=== PATIENT | male | born 1990 | race Caucasian/White ===

== ENCOUNTER 2017-07-24 08:31 | Emergency (ER) | payer SELFPAY ==
[2017-07-24 08:32] VITALS: BP 148/108; PULSE 100; RESP 17; TEMP 37.1; O2SAT 97; BMI 38.1
--- NOTE | 2017-07-24 08:45 | RAD_ITS ---
STUDY: X-RAY CHEST REASON FOR EXAM: Male, 26 years old. Anterior chest pain. Flu like symptoms. TECHNIQUE: PA and lateral views of the chest. COMPARISON: None. FINDINGS: EKG electrodes are seen. The lungs are clear and expanded. There is no demonstrated pleural abnormality. Normal size heart. Normal mediastinum and arnold. Normal visualized pulmonary arteries. Normal visualized aortic arch and descending thoracic aorta. Normal visualized thoracic spine. Normal visualized ribs, clavicles, and shoulders. There is no demonstrated abnormality of the visualized soft tissue structures of the upper abdomen. RAD/Chest PA and Lateral IMPRESSION: Normal x-ray examination of the chest. Electronically Signed: Kristian Hyatt MD at 9:12 EDT Tel [phone], Service support ,
--- NOTE | 2017-07-24 08:46 | ED.VISSUMM ---
- ER Visit Summary Date of Service: 07/24/17 Chief Complaint: Flu symptoms and vomiting History of Present Illness: The patient is a 26 M with no underlying medical conditions who presents for 2 days of flulike symptoms and vomiting. Patient's girlfriend was diagnosed with influenza B yesterday. Patient states he has been having similar symptoms for 2 days, except he is having vomiting as well. He is also concerned about episodes of chest heaviness and shortness of breath that occur if he coughs or moves incorrectly. The symptoms will last approximately 1 hour and then resolved. He has been using Advil and TheraFlu. Associated fever, cough, vomiting, myalgias and headache. No rash, weakness, paresthesias or visual changes. It is a smoker. Physical Examination: Vital signs: afebrile, hemodynamically stable, no hypoxia on room air General: well nourished, well developed, in no distress Skin: warm, dry, moist, no rash, no pallor HEENT: normocephalic and atraumatic; PERRL, EOMI, moist mucous membranes Cardiovascular: regular rate and rhythm without murmurs, no peripheral edema, 2+ pulses all distal extremities Respiratory: No increased work of breathing, lungs show mild diffuse coarseness, left > right, to auscultation bilaterally, no rales or wheezing Abdominal: Abdomen is soft, nontender with normoactive bowel sounds, no guarding or rebound, no masses MSK: Moves all extremities, no deformities, normal strength Neuro: Awake and alert, oriented ?4. No facial droop, sensation and motor function intact and symmetric Test Results: Clinical Impression(s) from Imaging Studies Chest X-Ray 07/24/17 08:45 IMPRESSION: Normal x-ray examination of the chest. Electronically Signed: Kristian Hyatt MD at 9:12 EDT Tel [phone], Service support , Emergency Department Course and Treatment: Patient is concerned about developing pneumonia, given the chest tightness and shortness of breath triggered by movement or coughing episodes. Flu test not performed, as diagnosis can be made clinically given known exposure and consistent symptoms with flu B. X-ray was performed due to patient's concern for pneumonia. It showed no infiltrates or effusions. Patient had episodic chest wall spasms for which he was given Toradol. EKG showed no diffuse [place] depressions or ST elevations that would be concerning for pericarditis. Patient is well-appearing, afebrile and non-tachycardic, and symptoms are not consistent with viral myocarditis. Patient will continue using olal-vzd-dnooscg pain medications as needed for pain. He was given a prescription for Zofran for any further nausea. 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 Treatment Plan: [] Disposition: [] Impression: Influenza B This note was generated with [employer] dictation software. It may contain incorrect words, spelling, and punctuation that were not noted in review of the chart prior to signing ED Disposition - Plan for ED Patient: Disposition: Home or Assisted Living Chief Complaint: Cold Sx Instructions: ED Flu Prescriptions: Ondansetron [Zofran Odt] 4 mg PO TID PRN #10 tab.rapdis PRN Reason: Nausea Referrals: Care Physician,No Primary [Primary Care Provider] - Doctor,Your [STAFF PHYSICIAN] - 1 Week if not improving Additional Instructions: Continue over the counter medications for symptom control, as you have been doing. Do not return to work until you are feeling better, since you could spread the flu to others. If you have any worsening of your condition or any new concerning symptoms, please return immediately to the emergency department for another evaluation.
--- NOTE | 2017-07-24 08:49 | ED.DCSUM_ITS ---
- ER Visit Summary Date of Service: 07/24/17 Chief Complaint: Flu symptoms and vomiting History of Present Illness: The patient is a 26 M with no underlying medical conditions who presents for 2 days of flulike symptoms and vomiting. Patient's girlfriend was diagnosed with influenza B yesterday. Patient states he has been having similar symptoms for 2 days, except he is having vomiting as well. He is also concerned about episodes of chest heaviness and shortness of breath that occur if he coughs or moves incorrectly. The symptoms will last approximately 1 hour and then resolved. He has been using Advil and TheraFlu. Associated fever, cough, vomiting, myalgias and headache. No rash, weakness, paresthesias or visual changes. It is a smoker. Physical Examination: Vital signs: afebrile, hemodynamically stable, no hypoxia on room air General: well nourished, well developed, in no distress Skin: warm, dry, moist, no rash, no pallor HEENT: normocephalic and atraumatic; PERRL, EOMI, moist mucous membranes Cardiovascular: regular rate and rhythm without murmurs, no peripheral edema, 2 + pulses all distal extremities Respiratory: No increased work of breathing, lungs show mild diffuse coarseness , left > right, to auscultation bilaterally, no rales or wheezing Abdominal: Abdomen is soft, nontender with normoactive bowel sounds, no guarding or rebound, no masses MSK: Moves all extremities, no deformities, normal strength Neuro: Awake and alert, oriented ?4. No facial droop, sensation and motor function intact and symmetric Test Results: Clinical Impression(s) from Imaging Studies Chest X-Ray 07/24/17 08:45 IMPRESSION: Normal x-ray examination of the chest. Electronically Signed: Kristian Hyatt MD at 9:12 EDT Tel [phone], Service support , Emergency Department Course and Treatment: Patient is concerned about developing pneumonia, given the chest tightness and shortness of breath triggered by movement or coughing episodes. Flu test not performed, as diagnosis can be made clinically given known exposure and consistent symptoms with flu B. X-ray was performed due to patient's concern for pneumonia. It showed no infiltrates or effusions. Patient had episodic chest wall spasms for which he was given Toradol. EKG showed no diffuse [place] depressions or ST elevations that would be concerning for pericarditis. Patient is well-appearing , afebrile and non-tachycardic, and symptoms are not consistent with viral myocarditis. Patient will continue using kwyk-vqy-ozvjski pain medications as needed for pain. He was given a prescription for Zofran for any further nausea. 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 Treatment Plan: [] Disposition: [] Impression: Influenza B This note was generated with [employer] dictation software. It may contain incorrect words, spelling, and punctuation that were not noted in review of the chart prior to signing ED Disposition - Plan for ED Patient: Disposition: Home or Assisted Living Chief Complaint: Cold Sx Instructions: ED Flu Prescriptions: Ondansetron [Zofran Odt] 4 mg PO TID PRN #10 tab.rapdis PRN Reason: Nausea Referrals: Care Physician,No Primary [Primary Care Provider] - Doctor,Your [STAFF PHYSICIAN] - 1 Week if not improving Additional Instructions: Continue over the counter medications for symptom control, as you have been doing. Do not return to work until you are feeling better, since you could spread the flu to others. If you have any worsening of your condition or any new concerning symptoms, please return immediately to the emergency department for another evaluation.
[2017-07-24] MEDS: Ondansetron ODT 4 MG Tablet PO (09:44)
--- OUTSIDE RECORDS SUMMARY | 2017-07-24 09:48 | XMS RPT_ITS ---
:1990 Author Organization [facility] Care Team Providers Name Role Phone Noel Husain Attending Unavailable Primay Care Physicia, No Primary Care Unavailable Primay Care Physicia, No Primary Care Unavailable Monie Newman Attending Unavailable PROBLEMS PROBLEMS DATE TYPE CONDITION / ATTENDING STATUS SOURCE CODE 08/05/2016 Admitting ABSCESS, Noel Husain Active [place] diagnosis FURUNCLE AND [facility] CARBUNCLE [facility] NOSE / Repository J34.0(ICD-10) 08/05/2016 Admitting TOBACCO USE / Noel Husain Active [place] diagnosis Z72.0(ICD-10) [facility] Repository PROCEDURES PROCEDURES No Procedure Records FoundRESULTS RESULTS CHEST PA AND LATERAL Observed: 07/24/2017 Status: F Source: KIMBERLY 8:46 AM [facility] [id number] [place] [id number] PA and LateralMR#: [id number] Acct: [id number]: AMINA HERNANDEZ Rep #: [id number]: [birth year] M 26 From: Kristian Hyatt MDPCP: Care Physician, No Primary Status: REG ERStudy: Chest PA and Lateral Date of Exam: 07/24/17Exam# [id number] Ordering Dr: Monie Newman MDSTUDY: X-RAY CHESTREASON FOR EXAM: Male, 26 years old. Anterior chest pain. Flu likesymptoms.TECHNIQUE: PA and lateral views of the chest.COMPARISON: None. FINDINGS:EKG electrodes are seen.The lungs are clear and expanded. There is no demonstrated pleuralabnormality.Normal size heart. Normal mediastinum and arnold. Normal visualizedpulmonary arteries. Normal visualized aortic arch and descending thoracicaorta.Normal visualized thoracic spine. Normal visualized ribs, clavicles, andshoulders.There is no demonstrated abnormality of the visualized soft tissuestructures of the upper abdomen. ORDER #: [id number] RAD/Chest PA and LateralIMPRESSION:Normal x-ray examination of the chest.Electronically Signed:Kristian Hyatt MD at 9:12 EDTT [phone], Service support , LQ: No Primary Care Physician; Monie Newman MD [employer] Administrator:Signed EMERGENCY DEPARTMENT Observed: 07/31/2016 Status: F Source: POSEN SUMMARY 7:36 AM [facility] [id number] [place], [place] [address]Oiuseqcct Department SummaryMR#: [id number] Acct: [id number]: AMINA HERNANDEZ Rep #: [id number]: 1990 25 From: Noel MARINELLICP: Care Physician,No Primary Status: DEP ERDATE OF SERVICE: 07/30/2016CHIEF COMPLAINT:Redness at the tip of his nose.HISTORY OF PRESENT ILLNESS:This is a 25-year-old male, redness at the tip of his nose for the last 2-3 days. Nofever. Denies any trauma. He said he tried to express pus from it tonight and did notget anything out of it.PHYSICAL EXAMINATION:GENERAL: A 25-year-old gentleman.VITAL SIGNS: Stable, afebrile. She does not look septic or toxic, no acute distress.HEENT: Normal except tip of his nose is red, mildly tender. There is no abscess to bedrained at this time. Inside his nose, there are no pustules or drainage. Posteriorpharynx unremarkable.NECK: Nontender. No lymphadenopathy.LUNGS: Clear.HEART: Regular rate and rhythm. No murmur.ABDOMEN: Soft, nontender.EXTREMITIES: Moves all 4.NEUROLOGIC: Unremarkable.IMPRESSION: Facial cellulitis in the tip of the nose.PLAN:Keflex and Bactrim, given a dose here of each, each will be treated for 10 days. He hasno primary care physician. He was referred to Dr. Atul Gan from the no doc list. Warmcompresses to the area and Motrin and Tylenol for pain.SNOW [place] C: Atul Gan MDT: NTSJOB: [id number]/ [id number] <Electronically signed by Noel Husain MD>Date [facility] Signature (If Indicated): Date CC: Atul Gan MD; No Primary Care Physician Date Dictated: 07/30/162225Date Transcribed: 07/30/162225Transcriptionist:Signed DISCHARGE INSTRUCTION Observed: 07/31/2016 Status: F Source: POSEN 12:20 AM [facility] [id number] [facility] [place], [place] [address]Vptfkkgyq Nsnotnfgxmv97/15/17 222MR#: [id number] Acct: [id number]: AMINA HERNANDEZ Rep #: [id number]: 1990 25 From: Noel Husain MDPCP: Care Physician,No Primary Status: DEP ERED Disposition- Plan for ED Patient:Disposition: Home or Assisted LivingChief Complaint: WoundInstructions: ED Cellulitis FacialPrescriptions:Smz/Tmp Ds [Bactrim Ds] 1 tablet PO BID #20 tabletCephalexin [Keflex] 500 mg PO 4X/DAY 10 DaysReferrals:Atul Gan MD [NON-STAFF] - 3-5 Days if not improvingAdditional Instructions:WARM COMPRESSES TO NOSEMOTRIN AND TYLENOL FOR PAINRETURN IF WORSEWhat to do if you have ProblemsFor any increased pain, shortness of breath, bleeding, nausea or vomiting, chest pain, or anyunexpected problems, contact your Primary Care Provider. Call [facility] ([phone])or report to the closest Emergency Room.Call 911 if necessary.07/31/16 0020 <Electronically signed by Noel Husain MD>Date Noel Husain MDCosigner Signature (If Indicated): Date ___CC: No Primary Care Physician ALLERGIES ALLERGIES DATE TYPE / CODE NAME / CODE REACTION SEVERITY SOURCE 12/18/2015 Drug No Known Unknown [facility] Allergy/416 Allergies/T97522 [facility] 807362(SNOM 0388(RXNORM) Repository ED CT) 12/18/2015 Allergy/420 No Known [facility] [id number]([facility] Allergies Hospital ED CT) Repository ENCOUNTERS ENCOUNTERS ADMIT/DISCHARGE ACCOUNT ADMITTING ENCOUNTER LOCATION SOURCE NUMBER CLASS 07/24/[id number] [facility] ing:ED Repository 07/30/2016/ [id number] Emergency [address] ing:ED Repository PAYERS PAYERS ENCOUNTER GUARANTOR PAYER SUBSCRIBER SOURCE 07/24/2017 AMINA Mancia [id number] Primary MICHAEL PRETTY Insurance:SELF PAY [facility] [id number]: (330) Number: Effective Repository [phone] () Date:2017-07-24 07/30/2016 AMINA Mancia [id number] Primary AMINA PRETTY Insurance:SELF PAY [facility] [id number]: Number: Effective [facility] Date: (HP)
--- NOTE | 2017-07-24 09:53 | ED.DEP ---
ED Disposition - Plan for ED Patient: Disposition: Home or Assisted Living Chief Complaint: Cold Sx Instructions: ED Flu Prescriptions: Ondansetron [Zofran Odt] 4 mg PO TID PRN #10 tab.rapdis PRN Reason: Nausea Referrals: Care Physician,No Primary [Primary Care Provider] - Doctor,Your [STAFF PHYSICIAN] - 1 Week if not improving Additional Instructions: Continue over the counter medications for symptom control, as you have been doing. Do not return to work until you are feeling better, since you could spread the flu to others. If you have any worsening of your condition or any new concerning symptoms, please return immediately to the emergency department for another evaluation.
--- NOTE | 2017-07-24 10:08 | EKG12_ITS ---
Test Reason : FLU
[2017-07-24] MEDS: Ketorolac 60 MG/2 ML Vial IM (10:32)
== END 2017-07-24 10:40 | disposition home or self-care (01) ==
PROVIDERS: Emergency Provider Emergency Medicine
DX: J11.1 Influenza due to unidentified influenza virus with other respiratory manifestations (principal); F17.200 Nicotine dependence, unspecified, uncomplicated
CPT/HCPCS: 71046; 93005; 96372; 99282

== ENCOUNTER 2017-10-30 19:47 | Emergency (ER) | payer SELFPAY ==
[2017-10-30 19:48] VITALS: BP 121/91; PULSE 101; RESP 24; TEMP 37.6; O2SAT 100; BMI 38.7
--- NOTE | 2017-10-30 20:03 | EKG12_ITS ---
Test Reason : SOB Blood Pressure : / mmHG Vent. Rate : 088 BPM Atrial Rate : 088 BPM P-R Int : 192 ms QRS Dur : 116 ms QT Int : 360 ms P-R-T Axes : 049 022 028 degrees QTc Int : 435 ms Normal sinus rhythm Normal ECG Confirmed by AFSHIN CLAY, MARY KAY ([id number]), photographic editor CARLOS MAHONEY ([id number]) on 11/01/2017 1:43:26 PM Referred By: DANIEL Confirmed By:MARY KAY PEPE MD
--- NOTE | 2017-10-30 20:20 | RAD_ITS ---
STUDY: X-RAY CHEST REASON FOR EXAM: Male, 27 years old. Short of breath TECHNIQUE: PA and lateral COMPARISON: July 24, 2017 FINDINGS: The lungs are clear and expanded. There is no demonstrated pleural abnormality. Normal size heart. Normal mediastinum and arnold. Normal visualized pulmonary arteries. Normal visualized aortic arch and descending thoracic aorta. Normal visualized thoracic spine. Normal visualized ribs, clavicles, and shoulders. There is no demonstrated abnormality of the visualized soft tissue structures of the upper abdomen. No significant changes since prior study RAD/Chest PA and Lateral IMPRESSION: Normal x-ray examination of the chest. Electronically Signed: Noel Quiroz MD at 21:06 EDT , Service support ,
[2017-10-30 20:24] VITALS: PULSE 87; RESP 20
[2017-10-30] MEDS: Ipratropium/Albuterol Sulfate 3 ML AMPUL.NEB INHALATION (20:24)
[2017-10-30] MEDS: 0.9% Normal Saline 1,000 ML 999 ML IV (20:26)
[2017-10-30 20:33] LABS: Absolute Lymphocyte Count 1.25 X10^3/ul (0.83-4.51); Absolute Neutrophil Count 7.1 X10^3/uL (2.0-7.7); Basophil# 0.02 X10^3/uL; Basophil% 0.2 % (0-1); Eosinophil# 0.17 X10^3/uL; Eosinophils% 1.8 % (0-5); Hematocrit 44.5 % (40-54); Hemoglobin 15.2 g/dl (13.0-16.5); Lymphocyte # 1.25 X10^3/ul (4.0); Mean Corp Hgb Conc 34.2 g/gl (32-36); Mean Corpuscular Hgb 29.7 pg (27.0-32.0); Mean Corpuscular Volume 86.9 fL (80-94); Mean Platelet Vol. 9.5 fl (6.2-12.0); Monocyte# 1.11 X10^3/uL; Monocyte% 11.5 % (0-10); Neutrophil # 7.08 X10^3/uL (2.7-7.7); Neutrophil % 73.4 % (47-70); Platelet Count 213 K/mm3 (150-450); RBC Distribution Width CV 12.6 % (11.6-14.6); RBC Distribution Width SD 40.3 fl (35.1-43.9); Red Blood Count 5.12 M/mm3 (4.6-6.2); White Blood Count 9.6 K/mm3 (4.4-11.0)
[2017-10-30 20:34] LABS: POSITIVE COUNT NO; POSITIVE DIFFERENTIAL NO; POSITIVE MORPHOLOGY NO
[2017-10-30 20:45] LABS: Anion Gap 8 (5-15); BUN 11 mg/dL (7-18); BUN/Creat Ratio 9.6 RATIO (10-20); Calcium,Total 8.8 mg/dL (8.5-10.1); Chloride 104 mmol/L (98-107); Creatinine, Serum 1.14 mg/dL (0.70-1.30); EST Glomerular Filtration Rate 82 mL/min (>60); Est Glom Filt Rate - Afr Amer 99 mL/min (>60); Estimated Creatinine Clearance 116.33 ml/min; Glucose 84 mg/dL (74-106); Potassium 3.2 mmol/L (3.5-5.1); Sodium Level 139 mmol/L (136-145)
[2017-10-30 20:50] LABS: Allen Test POS; Base Excess -1 mmol/L (-2 to +2); Bicarbonate 21.1 mmol/L (22-26); Blood Gas Specimen Type ART; O2 Delivery Device Room Air; PO2 79 mmHG (75-100); SITE L Radial; SO2 97 % (95-99); Time Given 2020; Total Carbon Dioxide 22 mmol/L; pCO2 23.8 mmHg (35-45); pH 7.56 (7.35-7.45)
--- NOTE | 2017-10-30 22:40 | ED.DCSUM_ITS ---
- ER Visit Summary Date of Service: 10/30/17 Chief Complaint: Shortness of breath History of Present Illness: The patient is a 27 M who presents with shortness of breath that became worse today. Patient states he has been having a cough with some dark yellow sputum. Patient admits to subjective fevers at home. Patient denies any chest pain. Patient states his girlfriend was recently diagnosed with bronchitis. Patient states he feels like he has stuff in his right lower lung that he needs to cough up. Patient states he is unable to do that. Physical Examination: Vital signs are stable. Patient is afebrile. Patient is hyperventilating on evaluation. Oral mucosa is pink and moist. Neck is supple. There is no JVD noted. Heart was regular rate and rhythm. Lungs showed scattered rhonchi. There is good respiratory effort noted. Abdomen is soft. Bowel sounds are normal. Cranial nerves II through XII are intact. There are no focal motor or sensory deficits noted. Patient is having some carpal pedal spasms due to his hyperventilation. The remaining physical exam is within normal limits. Test Results: Chest x-ray was obtained and was normal. EKG showed normal sinus rhythm with a rate of 88. There are no acute ST or T-wave changes. This was unchanged compared to previous EKG dated 07/24/2017. CBC was normal. Basic metabolic profile showed a mild hypokalemia at 3.2. Arterial blood gas showed a pH of 7.56 with a PCO2 of 23.8. PO2 was 79. Bicarb was 21.1. Oxygen saturation 97% on room air. Emergency Department Course and Treatment: Patient was given a DuoNeb aerosol here. Patient felt better on reevaluation. Patient is no longer hyperventilating. Patient was instructed to follow-up with his primary care physician in 5-7 days. Patient understood and was agreeable with the plan. All questions were answered. Disposition: Discharge home Impression: Dyspnea This note was generated with [employer] dictation software. It may contain incorrect words, spelling, and punctuation that were not noted in review of the chart prior to signing ED Disposition - Plan for ED Patient: Disposition: Home or Assisted Living Chief Complaint: Shortness of Breath Diagnosis: Dyspnea Instructions: ED Dyspnea Shortness of Breath Referrals: Care Physician,No Primary [Primary Care Provider] -
[2017-10-30 23:13] VITALS: BP 114/90; PULSE 92; RESP 20; O2SAT 100
--- NOTE | 2017-10-31 13:43 | CM.ED ---
ED CALLBACK: Follow-up call placed to patient with no answer. Voicemail box has not been setup yet, per message. Will reattempt as time allows.
== END 2017-10-30 23:14 | disposition home or self-care (01) ==
PROVIDERS: Emergency Provider Emergency Medicine
DX: R06.00 Dyspnea, unspecified (principal); E66.9 Obesity, unspecified
CPT/HCPCS: 36600; 71046; 80048; 82803; 85025; 93005; 94640; 96360; 96361; 99284; J7030; A4216

== ENCOUNTER 2019-05-23 21:44 | Emergency (ER) | payer SELFPAY ==
[2019-05-23 21:45] VITALS: BP 130/76; PULSE 105; RESP 18; TEMP 36.4; O2SAT 96; BMI 36.8
--- NOTE | 2019-05-23 22:20 | ED.DCSUM_ITS ---
- ER Visit Summary Date of Service: 05/23/19 Chief Complaint: Nausea, vomiting and diarrhea History of Present Illness: The patient is a 28 M no past medical or surgical history. Patient states for last 3 to 4 days he has had nausea and mild vomiting. That she started today. He is also had diarrhea. No melena. No fever no abdominal pain. No dysuria. Physical Examination: Young male no acute distress vital signs stable afebrile. Does not look septic or toxic. Does not look dehydrated. H EENT exam unremarkable. Hospitalist members. Neck nontender no lymphadenopathy. Lungs clear to auscultation bilaterally. Heart regular rhythm rate about 100 no murmur. Abdomen soft nontender normal bowel sounds no peritoneal signs. No localizing tenderness. Both the right upper and right lower quadrants are nontender. No hernias or masses. Nondistended. No obstruction. Patient moving all 4 extremities. Back nontender. Skin no rashes. Neurologically is awake alert with no focal motor deficits. Test Results: None Emergency Department Course and Treatment: P.o. Zofran. P.o. fluid challenge if does well discharged home. Treatment Plan: Zofran as needed for nausea. Fluids and rest. Increase diet slowly as tolerated. Disposition: Discharge Impression: Acute viral gastroenteritis This note was generated with [employer] dictation software. It may contain incorrect words, spelling, and punctuation that were not noted in review of the chart prior to signing ED Disposition - Plan for ED Patient: Referrals: Care Physician,No Primary [Primary Care Provider] -
--- NOTE | 2019-05-23 22:22 | ED.DEP ---
ED Disposition - Plan for ED Patient: Disposition: Home or Assisted Living Instructions: GASTROENTERITIS, Viral (6y-Adult) Prescriptions: Ondansetron [Zofran Odt] 4 mg PO Q8H PRN PRN #7 tab PRN Reason: Nausea Prescription Printed Referrals: Janene Thomas [NON-STAFF] - 3-5 Days if not improving Additional Instructions: Plenty of fluids and rest. Increase diet as tolerated. Zofran as needed for nausea. Follow-up if not improving.
[2019-05-23] MEDS: Ondansetron ODT 4 MG Tablet 8 MG PO (22:23)
== END 2019-05-23 22:36 | disposition home or self-care (01) ==
LOC: ED 22:29
PROVIDERS: Emergency Provider Emergency Medicine
DX: A08.4 Viral intestinal infection, unspecified (principal); Z72.0 Tobacco use
CPT/HCPCS: 99283

== ENCOUNTER 2019-10-10 14:28 | Emergency (ER) | payer SELFPAY ==
[2019-10-10 14:29] VITALS: BP 151/103; PULSE 95; RESP 17; TEMP 36.6; O2SAT 96; BMI 40.6
--- NOTE | 2019-10-10 14:58 | CT_ITS ---
STUDY: CT ABDOMEN AND PELVIS WITHOUT CONTRAST REASON FOR EXAM: Male, 29 years old. PAINLESS VOMITING RADIATION DOSAGE (If Supplied By Facility): CTDIvol = ( 22.9 ) mGy, DLP = ( 1834.97 ) mGycm TECHNIQUE: Transaxial images were obtained from the dome of the diaphragm to the symphysis pubis without oral contrast, and without intravenous contrast. Sagittal and coronal images were reconstructed. Individualized dose optimization techniques were used for this CT. COMPARISON: None. FINDINGS: The visualized lung bases are unremarkable. The visualized portions of the heart are within normal limits. There is decreased attenuation of the liver consistent with steatosis. Normal gallbladder and extrahepatic biliary system. Normal spleen. Normal pancreas. Normal bilateral adrenal glands. Normal right kidney. Normal left kidney. No definite renal or ureteral stones are seen. There is no hydronephrosis on either side. Evaluation of the GI tract is limited by absence of oral contrast. Cannot exclude stomach wall thickening. No dilated loops of bowel or evidence for obstruction. Cannot exclude segmental thickening of the jara of the small or large bowel. Cannot exclude enteritis or colitis. Moderate diffuse fecal retention. Appendix within normal limits. Normal abdominal aorta. Normal inferior vena cava. Normal retroperitoneum. Normal urinary bladder. Normal abdominal wall. Normal osseous structures. CT/Abdomen/Pelvis without Cont IMPRESSION: No definite acute or significant abnormality seen. Electronically Signed: Cristian June MD at 17:55 EDT , Service support ,
--- NOTE | 2019-10-10 14:59 | ED.VISSUMM ---
- ER Visit Summary Date of Service: 10/10/19 Chief Complaint: Nausea and vomiting History of Present Illness: The patient is a 29 M who presents with nausea and vomiting that has been constant for the past week. Patient states it is worse in the morning. Patient states he did noted some blood streaks in his emesis yesterday but denies any other hematemesis or coffee-ground emesis. Patient denies any abdominal pain. Patient denies any diarrhea, melena, or hematochezia. Patient denies any dysuria or hematuria. Patient admits to subjective chills and a mild sore throat. Patient also admits to a mild cough. Physical Examination: Vital signs are stable. Patient is afebrile. Patient is in no acute distress. Oral mucosa is pink and moist. Neck is supple. Trachea is midline. There is no JVD. Heart was regular rate and rhythm. Lungs are clear and equal bilaterally. Abdomen is soft. Bowel sounds are normal. There is no tenderness. There is no guarding noted. Cranial nerves II through XII are intact. There are no focal motor or sensory deficits. Test Results: CBC and comprehensive metabolic profile were essentially within normal limits. Lipase was normal. Urinalysis does not show any evidence of urinary tract infection. CT scan of the abdomen pelvis was obtained. There is no acute intra-abdominal process. This was interpreted by the radiologist and reviewed by myself. Emergency Department Course and Treatment: Patient was given IV fluids and Zofran. Patient was feeling better on reevaluation. Patient was instructed to follow-up with his primary care physician in 5 to 7 days. Patient was instructed return if worse in any way. Patient understood and was agreeable with the plan. All questions were answered. Disposition: Discharge home Impression: Nausea and vomiting This note was generated with PositiveID dictation software. It may contain incorrect words, spelling, and punctuation that were not noted in review of the chart prior to signing ED Disposition - Plan for ED Patient: Disposition: Home or Assisted Living Diagnosis: Nausea & vomiting Instructions: ED Nausea Vomiting Adult Referrals: Art Bui MD [NON-STAFF] - 5-7 Days
[2019-10-10 15:30] LABS: Absolute Lymphocyte Count 1.65 X10^3/uL (0.83-4.51); Absolute Neutrophil Count 5.2 X10^3/uL (2.0-7.7); Basophil# 0.04 X10^3/uL; Basophil% 0.5 % (0-1); Eosinophil# 0.04 X10^3/uL; Eosinophils% 0.5 % (0-5); Hematocrit 45.9 % (40-54); Hemoglobin 15.8 g/dL (13.0-16.5); Lymphocyte # 1.65 X10^3/ul (4.0); Lymphocyte % 21.9 % (19-41); Mean Corp Hgb Conc 34.4 g/dL (32-36); Mean Corpuscular Hgb 30.2 pg (27.0-32.0); Mean Corpuscular Volume 87.6 fL (80-94); Mean Platelet Vol. 9.1 fl (6.2-12.0); Monocyte# 0.56 X10^3/uL; Monocyte% 7.4 % (0-10); NRBC Flagged by Analyzer 0 % (0-5); Neutrophil # 5.21 X10^3/uL (2.7-7.7); Neutrophil % 69.3 % (47-70); Platelet Count 276 K/mm3 (150-450); RBC Distribution Width CV 12.4 % (11.6-14.6); RBC Distribution Width SD 39.8 fl (35.1-43.9); Red Blood Count 5.24 M/mm3 (4.6-6.2); White Blood Count 7.5 K/mm3 (4.4-11.0)
[2019-10-10] MEDS: 0.9% Normal Saline 1,000 ML 1000 ML IV (15:37)
[2019-10-10 15:48] LABS: ALB/GLOB Ratio 1.2 RATIO (0.9-2.4); AST(SGOT) 53 U/L (15-37); Alanine Aminotransfer ALT/SGPT 128 U/L (16-61); Albumin, Serum 4.4 g/dL (3.2-5.0); Alkaline Phosphatase 76 U/L (45-117); Anion Gap 4 (5-15); BUN 14 mg/dL (7-18); BUN/Creat Ratio 15.7 RATIO (10-20); Calcium,Total 8.9 mg/dL (8.5-10.1); Chloride 108 mmol/L (98-107); Creatinine, Serum 0.89 mg/dL (0.70-1.30); EST Glomerular Filtration Rate 107 mL/min (>60); Est Glom Filt Rate - Afr Amer 130 mL/min (>60); Estimated Creatinine Clearance 146.37 ml/min; Globulin 3.7 g/dL (2.2-4.2); Glucose 106 mg/dL (74-106); Lipase 46 U/L (73-393); Potassium 3.7 mmol/L (3.5-5.1); Protein, Total 8.1 g/dL (6.4-8.2); Sodium Level 138 mmol/L (136-145)
[2019-10-10 16:39] VITALS: RESP 17
[2019-10-10 17:13] LABS: Bacteria 0 SEEN /hpf (None Seen); Red Blood Cells-Urine 0 SEEN /hpf (0-5); White Blood Cells 0 SEEN /hpf (0-5)
[2019-10-10 17:19] LABS: Glucose, Dipstick Normal (Normal); Ketone-Dipstick 5 mg/dl (Negative); Leukocyte Esterase-Dipstick Negative /ul (Negative); Nitrite-Dipstick Negative (Negative); Occult Blood-Urine Negative /ul (Negative); Protein-Dipstick 15 mg/dl (Negative); Specific Gravity, Urine 1.015 (1.002-1.030); Urine Bilirubin Dipstick Negative (Negative); Urine Urobilinogen Normal (Normal)
[2019-10-10 17:22] LABS: Color, Urine Yellow (Yellow); Urine Clarity Sl Cldy (Clear)
[2019-10-10 17:25] LABS: Mucous, Urine RARE /hpf (<or=2+); Squamous Epithelial Cells - UA 0-5 SEEN /hpf (0-5)
[2019-10-10 19:08] VITALS: RESP 16
== END 2019-10-10 19:09 | disposition home or self-care (01) ==
PROVIDERS: Emergency Provider Emergency Medicine
DX: R11.2 Nausea with vomiting, unspecified (principal); E66.9 Obesity, unspecified; F17.210 Nicotine dependence, cigarettes, uncomplicated
CPT/HCPCS: 74176; 80053; 81001; 83690; 85025; 96360; 99283; J7030; A4216; J2405

== ENCOUNTER 2019-12-01 09:13 | Emergency (ER) | payer SELFPAY ==
[2019-12-01 09:13] VITALS: BP 158/142; PULSE 76; RESP 18; TEMP 36.6; O2SAT 99; BMI 41.3
--- NOTE | 2019-12-01 09:50 | EKG12_ITS ---
Test Reason : Blood Pressure : / mmHG Vent. Rate : 068 BPM Atrial Rate : 068 BPM P-R Int : 188 ms QRS Dur : 116 ms QT Int : 394 ms P-R-T Axes : 029 007 023 degrees QTc Int : 418 ms Normal sinus rhythm with sinus arrhythmia Normal ECG Confirmed by ILA CLAY, MARC ([id number]), editorial manager OLIVERIO SKELTON ([id number]) on 12/07/2019 1:13:18 PM Referred By: SHAHAB Confirmed By:MARIA C THORPE MD
--- NOTE | 2019-12-01 09:51 | ED.VIS.GEN ---
History of Present Illness Chief Complaint: Headache Informant: Patient Onset: Weeks - 1 Context: Gradual Onset Timing: Waxes and wanes Quality: foggy, like there is air between my brain and my skull Location: whole head Current Severity: Mild Maximum Severity: Mild Worsened by: nothing Relieved by: nothing Associated Symptoms: none for past week. see below. Narrative: Patient presents for reevaluation after an event that happened 1 week ago while at work and he was seen at [facility] ER for it. Apparently, he was at work and sweating a lot, he was very hot, although he was trying to keep up by drinking fluids. His mouth felt dry and so he did try to drink more. However he felt lightheaded, he became more sweaty, weak, and then started feeling numb all over. This progressed to having a difficult time speaking. Because of all of that, he was sent by ambulance to the hospital where they did a CT head, EKG, blood work, and offered to admit him for an MRI to rule out stroke which he declined. Ever since then, although symptoms have been better, except he has felt foggy in his head with occasional pain, but he states it is not like a headache. He denies any focal neurologic symptoms. When he has occasional exacerbations of the discomfort in his head, he denies any other symptoms and he has had no further lightheadedness or near syncope. He went to urgent care this morning with these complaints and was diverted to the emergency department. Past Medical History - Allergies and Home Meds Allergies/Adverse Reactions: Allergies No Known Allergies Allergy (Verified 12/01/19 09:16) Primary Care Physician: Care Physician,No Primary [Primary Care Provider] - Smoking Status: Current every day smoker Review of Systems General: Denies: Chills, Fever, Sweats Eyes: Denies: Visual changes - bilaterally, Diplopia ENT: Denies: Bilateral ear pain, Rhinorrhea, Sore throat Cardiovascular: Denies: Chest pain, Palpitations Respiratory: Denies: Dyspnea, Cough, Dyspnea on exertion Gastrointestinal: Denies: Abdominal pain, Nausea, Vomiting, Diarrhea, Melena, Hematochezia Genitourinary: Denies: Dysuria, Hematuria, Frequency Musculoskeletal: Denies: Neck pain, Back pain, Swelling, Extremity Pain Skin: Denies: Rash, Wounds Neurological: Reports: Headache. Denies: Weakness, Numbness Physical Exam Vital Signs/Narrative: Vital Signs Temp Pulse Resp BP Pulse Ox 12/01/19 09:13 97.8 F 76 18 158/142 H 99 Inital Vital Signs reviewed: Yes General: Well nourished, Well developed, No Acute Distress Head: Normocephalic, Atraumatic Eyes: Perrl, EOMI ENT: Moist mucous membranes, No rhinorrhea Neck: Supple, Nontender, No lymphadenopathy Cardiovascular: Regular rate, Regular rhythm, No murmurs. Negative for: Tachycardia Respiratory: No distress, CTA bilaterally, Chest nontender Abdomen: Soft, Nontender, Nondistended, Normal bowel sounds Back: Nontender, Normal Inspection Extremities: Nontender, No edema. Negative for: Calf Tenderness Skin: Normal color, No rash, No Trauma Neurological: Alert, Oriented x3, Cranial nerves II-XII grossly intact, Normal Strength, Normal Sensation, Normal DTR Psychological: Normal affect, Normal Mood Diagnostic/Tx/Re-eval Laboratory Results 12/01/19 12/01/19 10:05 10:05 WBC 6.3 RBC 5.02 Hgb 15.0 Hct 44.8 MCV 89.2 MCH 29.9 MCHC 33.5 RDW Std Deviation 41.1 RDW Coeff of Vicente 12.6 Plt Count 253 MPV 9.3 Immature Gran % (Auto) 0.600 Neut % (Auto) 50.8 Lymph % (Auto) 33.6 Moody % (Auto) 11.4 H Eos % (Auto) 3.0 Baso % (Auto) 0.6 Absolute Neuts (auto) 3.2 Absolute Lymphs (auto) 2.13 Nucleated RBC % 0 Sodium 141 Potassium 4.0 Chloride 110 H Carbon Dioxide 29.0 Anion Gap 2 L BUN 8 Creatinine 0.77 Estim Creat Clear Calc 169.18 Est GFR (MDRD) Af Amer 153 Est GFR (MDRD) Non-Af 126 BUN/Creatinine Ratio 10.3 Glucose 99 Calcium 8.4 L - Rhythm Strip Rhythm Strip: Sinus Rhythm Rate: 70 Ectopy: None - EKG Initial EKG Interpretation: Sinus Rhythm, No Acute Injury Pattern - normal EKG - Medical Decision Making Other than a slightly low calcium at 8.4, labs and EKG are normal here. 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 This is probably why he was having difficulty talking, not true a aphasia, and with numbness throughout his entire body bilaterally, I do not think he was having a stroke likely although I certainly am only evaluating him a week after this event happened. I do not think he needs to have a repeat CT if he already had a negative one which he confirmed from his prior visit. I suspect this was all metabolic, possibly dehydration, heat exhaustion, electrolyte shifting could have caused the pedal spasms and muscle cramping. All that has been resolved since then. At this time, I recommend supportive care. He should stay hydrated, take a multivitamin or drink Gatorade, replete electrolytes, and if he is still having unusual symptoms, to follow-up. He has no PCP, so he was referred to the next doctor on the unassigned list. He is comfortable with that plan and reassured. ED Disposition - Plan for ED Patient: Disposition: Home or Assisted Living Diagnosis: Malaise Instructions: ED Headache Unspecified Referrals: Charmaine Cheatham MD [STAFF PHYSICIAN] - 1 Week if not improving (for primary care)
--- NOTE | 2019-12-01 10:05 | NURSING ---
NO OLD EKGS
[2019-12-01] MEDS: Ketorolac 15 MG/ML Vial IV (10:10)
[2019-12-01 10:27] LABS: Anion Gap 2 (5-15); BUN 8 mg/dL (7-18); BUN/Creat Ratio 10.3 RATIO (10-20); Calcium,Total 8.4 mg/dL (8.5-10.1); Chloride 110 mmol/L (98-107); Creatinine, Serum 0.77 mg/dL (0.70-1.30); EST Glomerular Filtration Rate 126 mL/min (>60); Est Glom Filt Rate - Afr Amer 153 mL/min (>60); Estimated Creatinine Clearance 169.18 ml/min; Glucose 99 mg/dL (74-106); Sodium Level 141 mmol/L (136-145)
[2019-12-01 10:44] LABS: Absolute Lymphocyte Count 2.13 X10^3/uL (0.83-4.51); Absolute Neutrophil Count 3.2 X10^3/uL (2.0-7.7); Basophil# 0.04 X10^3/uL; Basophil% 0.6 % (0-1); Eosinophil# 0.19 X10^3/uL; Hematocrit 44.8 % (40-54); Lymphocyte # 2.13 X10^3/ul (4.0); Lymphocyte % 33.6 % (19-41); Mean Corp Hgb Conc 33.5 g/dL (32-36); Mean Corpuscular Hgb 29.9 pg (27.0-32.0); Mean Corpuscular Volume 89.2 fL (80-94); Mean Platelet Vol. 9.3 fl (6.2-12.0); Monocyte# 0.72 X10^3/uL; Monocyte% 11.4 % (0-10); NRBC Flagged by Analyzer 0 % (0-5); Neutrophil # 3.21 X10^3/uL (2.7-7.7); Neutrophil % 50.8 % (47-70); Platelet Count 253 K/mm3 (150-450); RBC Distribution Width CV 12.6 % (11.6-14.6); RBC Distribution Width SD 41.1 fl (35.1-43.9); Red Blood Count 5.02 M/mm3 (4.6-6.2); White Blood Count 6.3 K/mm3 (4.4-11.0)
[2019-12-01 11:02] VITALS: BP 131/74; PULSE 68; RESP 15; O2SAT 99
== END 2019-12-01 11:03 | disposition home or self-care (01) ==
PROVIDERS: Emergency Provider Emergency Medicine
DX: R53.81 Other malaise (principal); F17.200 Nicotine dependence, unspecified, uncomplicated
CPT/HCPCS: 80048; 85025; 93005; 96374; 99284; A4216

== ENCOUNTER 2020-11-12 11:37 | Emergency (ER) | payer SELFPAY ==
[2020-11-12 11:37] VITALS: BP 138/104; PULSE 76; RESP 18; TEMP 35.9; O2SAT 98; BMI 39.5
[2020-11-12 13:03] LABS: Anion Gap 5 (5-15); BUN 13 mg/dL (7-18); BUN/Creat Ratio 16.9 RATIO (10-20); Calcium,Total 9.3 mg/dL (8.5-10.1); Chloride 105 mmol/L (98-107); Creatinine, Serum 0.77 mg/dL (0.70-1.30); EST Glomerular Filtration Rate 126 mL/min (>60); Est Glom Filt Rate - Afr Amer 153 mL/min (>60); Estimated Creatinine Clearance 172.22 ml/min; Glucose 92 mg/dL (74-106); Potassium 4.6 mmol/L (3.5-5.1); Sodium Level 140 mmol/L (136-145)
[2020-11-12 13:10] LABS: Absolute Lymphocyte Count 1.87 X10^3/uL (0.83-4.51); Absolute Neutrophil Count 3.5 X10^3/uL (2.0-7.7); Basophil# 0.03 X10^3/uL; Basophil% 0.5 % (0-1); Eosinophil# 0.09 X10^3/uL; Eosinophils% 1.5 % (0-5); Hematocrit 48.4 % (40-54); Hemoglobin 16.5 g/dL (13.0-16.5); Lymphocyte # 1.87 X10^3/ul (0.83-4.51); Lymphocyte % 31.2 % (19-41); Mean Corp Hgb Conc 34.1 g/dL (32-36); Mean Corpuscular Hgb 30.2 pg (27.0-32.0); Mean Corpuscular Volume 88.6 fL (80-94); Mean Platelet Vol. 9.1 fl (6.2-12.0); Monocyte# 0.45 X10^3/uL; Monocyte% 7.5 % (0-10); NRBC Flagged by Analyzer 0 % (0-5); Neutrophil # 3.53 X10^3/uL (2.7-7.7); Platelet Count 281 K/mm3 (150-450); RBC Distribution Width CV 12.5 % (11.6-14.6); RBC Distribution Width SD 40.8 fl (35.1-43.9); Red Blood Count 5.46 M/mm3 (4.6-6.2)
[2020-11-12 14:22] LABS: Red Blood Cells-Urine 0 SEEN /hpf (0-5); Squamous Epithelial Cells - UA 0 SEEN /hpf (0-5); White Blood Cells 0 SEEN /hpf (0-5)
[2020-11-12 14:28] LABS: Color, Urine Yellow (Yellow); Glucose, Dipstick Normal (Normal); Ketone-Dipstick Negative (Negative); Leukocyte Esterase-Dipstick Negative /ul (Negative); Nitrite-Dipstick Negative (Negative); Occult Blood-Urine Negative /ul (Negative); Protein-Dipstick 15 mg/dl (Negative); Specific Gravity, Urine 1.015 (1.002-1.030); Urine Bilirubin Dipstick Negative (Negative); Urine Clarity Clear (Clear); Urine Urobilinogen Normal (Normal); Urine pH 6.5 (5.0 - 8.0)
--- NOTE | 2020-11-12 14:37 | EDS_ITS ---
HPI HPI - GI History of Present Illness Chief Complaint: Abd Pain Narrative Narrative: Patient has past medical history of chronic GI distress. He states that this happened over a year ago when he had a biopsy of his stomach done. Has had problems with nausea, vomiting, and abdominal pain. On occasion he has diarrhea. He states that he was taking Bentyl given to him by his nurse practitioner. He was up to 3 times a day, but he was still having breakthrough pain. He states that he lost his insurance and has not had any dental for quite some time. An attempt to alleviate any pain, he states he smokes marijuana on occasion. He presents because over the last 3 to 4 days, he has had nausea and vomiting without hematemesis. He presents because he wants to know if there is anything stronger than Bentyl that he could have in the meantime, or at least get some Bentyl for his chronic abdominal pain. [facility] Medical History (Updated 11/12/20 @ 14:47 by Devin Duke MD) Gastritis Home Medications dicyclomine 20 mg PO TIDAC 12/01/19 [History Last Taken Unknown] omeprazole 40 mg PO DAILY 12/01/19 [History Last Taken Unknown] dicyclomine 20 mg PO TID #20 cap 11/12/20 [Rx Last Taken Unknown] ondansetron 4 mg PO Q8H PRN #10 tab 11/12/20 [Rx Last Taken Unknown] Allergy/AdvReac Type Severity Reaction Status Date / Time No Known Allergies Allergy Verified 11/12/20 11:40 Social History (System 11/26/17 @ 07:46 by Sujatha Saleem) Smoking Status: Current every day smoker tobacco type: cigarettes ROS ROS ED ROS Narrative Constitutional: No fever, no chills. HEENT: No sore throat. No neck pain. No loss of vision. No rhinorrhea. Cardiovascular: No chest pain. No palpitations. No pedal edema. Respiratory: No cough, no shortness of breath. Abdominal: Diffuse abdominal pain. Positive nausea. Positive vomiting. No hematemesis. Intermittent diarrhea. Genitourinary: No dysuria. No hematuria. Musculoskeletal: No myalgias. No arthralgias. Neurologic: No headaches. No dizziness. No lightheadedness. Skin: No rash. No change in color. Psychiatric: No depression. No anxiety. EXAM Physical Exam Narrative Exam Narrative: Afebrile. Vital signs noted. HEENT: Normocephalic. Atraumatic. PERRL, EOMI. Neck soft and supple. No point tenderness or step off. Cardiovascular: Regular rate and rhythm. No murmurs, rubs, or gallops appreciated. Respiratory: No tachypnea. Lungs clear to auscultation bilaterally. Gastrointestinal: Abdomen soft, nontender, obese, with normoactive bowel sounds. No rebound or guarding. Neurological: Awake. Alert. Nonfocal, nonlateralizing. Skin: No rash. Normal color. No pallor. Musculoskeletal: No pedal edema. Full range of motion extremities. Const Vital Signs: 11/12/20 11:37 Temperature 96.6 F L Temperature Source Temporal Pulse Rate 76 Respiratory Rate 18 Blood Pressure 138/104 H Blood Pressure Mean 115 Pulse Ox 98 Oxygen Delivery Method Room Air MDM MDM MDM Narrative Medical decision making narrative: Basic laboratories per protocol were checked. He has normal white count, hemoglobin stable at 16.5. Sodium and potassium are normal. He has normal chloride. Creatinine is also normal. Glucose is also normal at 92. But this is not a fasting glucose. He states that his feet have been itchy, and wanted to be checked for diabetes. He was told that he needs to follow-up with his primary care provider for this, as this is not a fasting glucose. He was given an intramuscular injection of Bentyl. At this point in time, I will write him a prescription for Bentyl and Zofran. He was told that smoking marijuana may also induce nausea and vomiting. He will follow up with his primary care physician. He was also referred to the surgeon on-call for endoscopy in the future, or he can follow-up with his primary care provider for referral. Disposition is discharged home in stable condition. Lab Data Labs: Laboratory Results - last 24 hr 11/12/20 11/12/20 11/12/20 12:33 12:33 14:00 WBC 6.0 RBC 5.46 Hgb 16.5 Hct 48.4 MCV 88.6 MCH 30.2 MCHC 34.1 RDW Std Deviation 40.8 RDW Coeff of Vicente 12.5 Plt Count 281 MPV 9.1 Immature Gran % (Auto) 0.300 Neut % (Auto) 59.0 Lymph % (Auto) 31.2 Tate % (Auto) 7.5 Eos % (Auto) 1.5 Baso % (Auto) 0.5 Absolute Neuts (auto) 3.5 Absolute Lymphs (auto) 1.87 Nucleated RBC % 0 Sodium 140 Potassium 4.6 Chloride 105 Carbon Dioxide 30.0 Anion Gap 5 BUN 13 Creatinine 0.77 Estim Creat Clear Calc 172.22 Est GFR (MDRD) Af Amer 153 Est GFR (MDRD) Non-Af 126 BUN/Creatinine Ratio 16.9 Glucose 92 Calcium 9.3 Urine Color Yellow Urine Clarity Clear Urine pH 6.5 Ur Specific [place] 1.015 Urine Protein 15 H Urine Glucose (UA) Normal Urine Ketones Negative Urine Occult Blood Negative Urine Nitrite Negative Urine Bilirubin Negative Urine Urobilinogen Normal Ur Leukocyte Esterase Negative Urine RBC 0 SEEN Urine WBC 0 SEEN Ur Squamous Epith Cells 0 SEEN Urine Bacteria RARE Urine Mucus 1+ Discharge Plan Triage Chief Complaint: Abd Pain ED Provider: Devin Duke Dx/Rx/DC Orders Clinical Impression: Abdominal pain, chronic, generalized, Nausea & vomiting Instructions: ED Vomiting (Adult), ED Abdominal Pain Unkn Cause Male... Prescriptions: New dicyclomine 10 mg capsule 20 mg PO TID Qty: 20 RF: 0 ondansetron 4 mg tablet,disintegrating 4 mg PO Q8H PRN (Reason: nausea and vomiting) Qty: 10 RF: 0 No Action omeprazole 40 MG capsule,delayed release(DR/EC) 40 mg PO DAILY RF: 0 dicyclomine 10 MG capsule 20 mg PO TIDAC RF: 0 Primary Care Provider: Joanne Butler NP Referrals: Joanne Butler NP, RECOVERY COLLECTOR-C [Primary Care Provider] - 11/14/20 Disposition Disposition: Home, Self Care
[2020-11-12 14:41] LABS: Bacteria RARE /hpf (None Seen); Mucous, Urine 1+ /hpf (<or=2+)
[2020-11-12] MEDS: Dicyclomine 20 MG/2 ML Vial IM (15:13)
[2020-11-12 15:14] VITALS: PULSE 91; RESP 20; O2SAT 99
== END 2020-11-12 15:14 | disposition home or self-care (01) ==
PROVIDERS: Emergency Provider Emergency Medicine; PCP Nurse Practitioner Adult Health
DX: R10.84 Generalized abdominal pain (principal); R11.2 Nausea with vomiting, unspecified; F17.210 Nicotine dependence, cigarettes, uncomplicated; Z79.899 Other long term (current) drug therapy
CPT/HCPCS: 80048; 81001; 85025; 96372; 99283; A4216

== ENCOUNTER 2023-07-20 19:22 | Emergency (ER) | payer SELFPAY ==
[2023-07-20 19:22] VITALS: BP 144/113; PULSE 115; RESP 15; TEMP 36.4; O2SAT 95; BMI 40.6
[2023-07-20] MEDS: Diphth,Pertuss(Acell),Tet Vac 0.5 ML Vial IM (20:00)
[2023-07-20] MEDS: Lidocaine 1% (20 ml mdv) 20 ML Vial INFILT (20:01)
--- NOTE | 2023-07-20 20:15 | EX.ED.UPPERE ---
HPI History of Present Illness Chief Complaint: Laceration Detail of Chief Complaint: Laceration ulnar side left thumb Informant: patient Occured/Mechanism Mechanism/Context: Yes injury Comment: Cutting boneless chicken for rapid BW threes. He sustained laceration to the left thumb. [id number]. Tetanus not up-to-date. Denies paresthesia, anesthesia or motor weakness. Onset/Context/Timing Onset: Hours Context: Sudden Onset Timing: Continuous Quality of Pain: Throbbing Location: Distal left thumb Current Severity: Mild Maximum Severity: Moderate Worsened by: Use and palpation Relieved by: Nothing Associated Symptoms Associated Symptoms: Negative for Parasthesia, Weakness or Loss of Funtion Narrative Narrative: Patient is a 32-year-old [id number] male who was cutting chicken at work. He sustained laceration to the left thumb. Laceration involves the ulnar side of the thumb with involvement of nailbed. Capillary fill is normal. Sensation is normal. There is no subungual hematoma since it was spontaneously released by cutting the nail and nailbed. He has full extension and flexion at the thumb. Tetanus Immunization: Unknown Prior similar symptoms: No Recent Illness/Hospitalization: No PFSH PFSH Medical History Gastritis Home Medications dicyclomine 10 mg capsule 20 mg PO TIDAC 12/01/19 [History Last Taken Unknown] omeprazole 40 mg capsule,delayed release 40 mg PO DAILY 12/01/19 [History Last Taken Unknown] dicyclomine 10 mg capsule 20 mg (2 x 10 mg) PO TID #20 caps 11/12/20 [Rx Last Taken Unknown] ondansetron 4 mg disintegrating tablet 4 mg PO Q8H PRN nausea and vomiting #10 tabs 11/12/20 [Rx Last Taken Unknown] Allergy/AdvReac Type Severity Reaction Status Date / Time No Known Allergies Allergy Verified 07/20/23 19:26 Social History Smoking Status: Current every day smoker tobacco type: cigarettes ROS ROS ED Constitutional Constitutional ED: Denies chills, fever(s) or subjective Integumentary Reports other Details: Laceration left thumb Neurologic Neurologic: Denies paresthesias or weakness Hematologic/Lymphatic Hematologic/Lymphatic: Denies easy bleeding or easy bruising EXAM Physical Exam Const Vital Signs: 07/20/23 19:22 Temperature 97.5 F L Temperature Source Temporal Pulse Rate 115 H Respiratory Rate 15 Blood Pressure 144/113 H Blood Pressure Mean 123 Pulse Ox 95 Oxygen Delivery Method Room Air Positive well nourished, well developed and obese General Appearance ED: well developed and NAD; Negative for cyanotic or diaphoretic Nutritional Appearance: obese HEENT normocephalic and atraumatic Eyes PERRL and EOMs intact bilaterally Resp normal respiratory effort Cardio regular rate and regular rhythm Extremity full ROM; Negative for normal to inspection Extremity Narrative: Laceration involving the distal ulnar side of left thumb with involvement of the nailbed. Total length is probably 2 cm. It is a flap-like laceration. Neuro oriented x3, CN's II-XII intact bilaterally, moves all extremities, no focal motor deficits and no sensory deficits noted Psych mental status grossly normal Skin Skin Narrative: Laceration as previously described MDM MDM MDM Narrative Medical decision making narrative: Patient with soft tissue injury due to knife. X-rays not indicated. Tetanus was updated. Patient was anesthetized by radial nerve and digital nerve block. A total of 3 cc of 1% lidocaine was infiltrated. Will reassess in 15 minutes to determine if appropriate anesthesia was achieved prior to removing part of the nail and repairing the nailbed and distal thumb. Patient was referred to Dr. Lei who is on-call for orthopedics. Procedures Other Procedures Procedure(s): 1. Digit was anesthetized with digital block and supplemented with radial nerve block. 2. Wound was irrigated with 250 cc of sterile water. 3. Nail was removed to repair the nailbed. 4. The skin was closed using 5-0 Ethilon. 4 stitches placed. Stitches were simple interrupted. 5. The nailbed was repaired using 5-0 Vicryl. Total of 3 stitches placed. Simple erupted stitches. 6. The nail was sutured back in place. Discharge Plan Triage Chief Complaint: Laceration ED Provider: Tadeo Jenkins Dx/Rx/DC Orders Clinical Impression: Laceration of thumb with damage to nail Instructions: ED Laceration, Hand: All Closures Prescriptions: No Action omeprazole 40 MG capsule,delayed release(DR/EC) 40 mg PO DAILY dicyclomine 10 MG capsule 20 mg PO TIDAC dicyclomine 10 mg capsule 20 mg PO TID Qty: 20 0RF ondansetron 4 mg tablet,disintegrating 4 mg PO Q8H PRN (Reason: nausea and vomiting) Qty: 10 0RF Primary Care Provider: Care Physician,No Primary Referrals: Jt Lei DO [Med Staff - Active Staff] - 3-5 Days Care Physician,No Primary [Primary Care Provider] - Activity Restrictions/Additional Instructions: 1. Keep thumb clean and dry for the next 4872 hours 2. Change dressing twice a day 3. Contact Dr. Lei's office for follow-up Disposition Disposition: Home, Self Care
[2023-07-20 21:13] VITALS: BP 160/104; PULSE 72; RESP 16; TEMP 36.2; O2SAT 99
== END 2023-07-20 21:13 | disposition home or self-care (01) ==
PROVIDERS: Emergency Provider Emergency Medicine; Visit Provider Emergency Medicine
DX: S61.112A Laceration without foreign body of left thumb with damage to nail, initial encounter (principal); F17.210 Nicotine dependence, cigarettes, uncomplicated; W26.8XXA Contact with other sharp object(s), not elsewhere classified, initial encounter; Y93.G3 Activity, cooking and baking; Y99.0 Civilian activity done for income or pay; E66.9 Obesity, unspecified; Z23 Encounter for immunization
CPT/HCPCS: 11760; 12001; 90471; 90715; 99284; A4216

== ENCOUNTER 2024-12-08 18:02 | Emergency (ER) | payer SELFPAY ==
[2024-12-08] VITALS (7 sets, daily range): BP systolic 135–157; BP diastolic 82–115; PULSE 62–86; RESP 12–24; TEMP 36.9; O2SAT 97–100; BMI 45.0
--- NOTE | 2024-12-08 18:34 | CT_ITS ---
PROCEDURE: STROKE BRAIN/HEAD WITHOUT CONT 12/08/2024 REASON FOR EXAM: NEURO DEFICIT, ACUTE, STROKE SUSPECTED TECHNIQUE: Procedure Code: CTBR.ST Modality: CT Procedure: STROKE BRAIN/HEAD WITHOUT CONT Coronal and Sagittal reconstruction series were provided. One or more dose reduction techniques were used (e.g., Automated exposure control, adjustment of the mA and/or kV according to patient size, use of iterative reconstruction technique. RADIATION DOSE SUMMARY: CTDlvol: 45 mGy DLP: 914 mGycm FINDINGS: No acute loss of cartagena-white differentiation. No mass. No hemorrhage. No hydrocephalus. CT/STROKE Brain/Head without Cont IMPRESSION: No acute abnormality. A reading will be called. Reading Location: [facility]
--- NOTE | 2024-12-08 18:34 | EKG12_ITS ---
Test Reason : STROKE ALERT Blood Pressure : */* mmHG Vent. Rate : 61 BPM Atrial Rate : 61 BPM P-R Int : 202 ms QRS Dur : 112 ms QT Int : 410 ms P-R-T Axes : 40 25 29 degrees QTcB Int : 412 ms Normal sinus rhythm with sinus arrhythmia Normal ECG Confirmed by Wilman Echols ([id number]), editorial director OLIVERIO SKELTON ([id number]) on 12/10/2024 5:54:35 AM Referred By: AR Confirmed By: Wilman Echols
--- NOTE | 2024-12-08 18:39 | ED.RN ---
1833: THIS NURSE CALLED [facility] STROKE LINE DUE TO PRIMARY NURSE, Francoise MERCADO, BEING UNAVAILABLE AT TIME OF STROKE ALERT ACTIVATION BY PRIMARY PROVIDER Francoise BRASWELL
--- NOTE | 2024-12-08 18:42 | CT_ITS ---
PROCEDURE: STROKE CTA HEAD AND NECK W/CON 12/08/2024 REASON FOR EXAM: NEURO DEFICIT, ACUTE, STROKE SUSPECTED TECHNIQUE: Procedure Code: CTCTA.ST.HN Modality: CT Procedure: STROKE CTA HEAD AND NECK W/CON Multiplanar Sagittal and Coronal images were obtained. Three-dimensional reconstructions CONTRAST: Isovue 370 VOLUME: 100 cc mL One or more dose reduction techniques were used (e.g., Automated exposure control, adjustment of the mA and/or kV according to patient size, use of iterative reconstruction technique). RADIATION DOSE SUMMARY: CTDlvol: 41 mGy DLP: 923 mGycm FINDINGS: The lung apices are clear. The aortic arch is normal in caliber. The origins of the great vessels are patent. There is no narrowing of the common carotid arteries. The carotid bifurcations are unremarkable. Patent distal cervical internal carotid arteries without luminal irregularity or dissection. Normal petrous, precavernous and cavernous internal carotid arteries. Left and right A1 segments patent. No A2 occlusion. Right M1, right M2, left M1 and left M2 branches patent. Both DISPATCHER CLERK vessels are patent. There is no stenosis of the basilar artery. No cervical vertebral dissection or stenosis. Negative For dural sinus thrombosis. No visible soft tissue masses are identified in the neck. CT/STROKE CTA Head AND Neck W/Con IMPRESSION: Negative for vascular occlusion Reading [facility]
[2024-12-08 19:07] LABS: Hematocrit 46.8 % (40-54); Hemoglobin 16.3 g/dL (13.0-16.5); Immature Granulocytes Count 0.020 X10^3/uL (0.0-0.0); Mean Corp Hgb Conc 34.8 g/dL (32-36); Mean Corpuscular Volume 87.0 fL (80-94); Mean Platelet Vol. 9.2 fl (6.2-12.0); NRBC Flagged by Analyzer 0 % (0-5); Platelet Count 276 K/mm3 (150-450); RBC Distribution Width CV 12.4 % (11.6-14.6); RBC Distribution Width SD 39.3 fl (35.1-43.9); Red Blood Count 5.38 M/mm3 (4.6-6.2); White Blood Count 6.9 K/mm3 (4.4-11.0)
[2024-12-08 19:17] LABS: Anion Gap 12 (5-15); BUN 12 mg/dL (4-19); BUN/Creat Ratio 14.3 RATIO (10-20); Calcium,Total 9.2 mg/dL (7.6-11.0); Carbon Dioxide 24.2 mmol/L (21.0-32.0); Chloride 104 mmol/L (98-108); Estimated Creatinine Clearance 198.61 ml/min (50-250); Glucose 90 mg/dL (70-99); Potassium 4.2 mmol/L (3.3-5.1); Troponin T High Sensitivity 6 ng/L (<=22)
[2024-12-08 19:58] LABS: Prothrombin Time (Protime)PT. 12.7 SECONDS (11.7-14.9)
[2024-12-08 19:59] LABS: Partial Thromboplast Time 27.3 Seconds (24.1-36.2)
[2024-12-08] MEDS: DiphenhydrAMINE 50 MG/ML Syringe 25 MG IV (20:40)
--- NOTE | 2024-12-08 20:41 | EDS_ITS ---
HPI History of Present Illness Chief Complaint: Eye Problem Narrative Narrative: 34-year-old male presents with right periorbital eye pain and headache as well as elevated blood pressure and right eye visual disturbance. He relates history remotely that about a year ago, he had neurological symptoms, and they attributed to hyperventilation syndrome. Early this morning/last evening at around midnight he states that he was watching TV with his and out of his right eye, he had blurry vision, and he was unable to focus. When he covered his right eye and looked out of his left eye, his vision was normal, but when he used both eyes, it was as if his right eye was not focusing well and was not tracking. He may have had double vision at that time. It lasted a few hours, then resolved. It started happening again today. He is describing more inability to focus or see clearly out of his right eye. While he can see shapes, figures, he is unable to clearly read behind objects that are more proximal. States he feels pain around his right eye as well, but denies any trauma. He has headache as well. He went to urgent care and he had elevated blood pressure at that time. He usually does not take any medications. [facility] Medical History Gastritis Medical History no medical history Allergy/AdvReac Type Severity Reaction Status Date / Time No Known Allergies Allergy Verified 12/08/24 18:03 Family History no significant family his Surgical History no surgical history Social History Smoking Status: Heavy Smoker (>10/day) ROS ROS ED ROS Narrative Review of systems positive for headache, right periorbital pain without trauma, right eye visual disturbance, difficulty focusing and tracking. No other symptoms. EXAM Physical Exam Narrative Exam Narrative: Afebrile. Vital signs noted. Nontoxic-appearing. Cardiovascular examination feels a regular rate and rhythm. Lungs are clear to auscultation bilaterally. Abdomen is soft and nontender with positive bowel sounds. Neurological examination is nonfocal, nonlateralizing. NIH stroke scale is 0. Const Vital Signs: 12/08/24 18:03 12/08/24 18:49 12/08/24 18:49 Temperature 98.4 F Temperature Source Oral Pulse Rate 86 69 Respiratory Rate 18 24 H Blood Pressure 155/100 H 157/115 H Blood Pressure Mean 118 129 Pulse Ox 97 99 98 Oxygen Delivery Method Room Air Room Air Room Air 12/08/24 19:04 12/08/24 19:30 12/08/24 20:00 Temperature Temperature Source Pulse Rate 72 66 62 Respiratory Rate 15 12 13 Blood Pressure 138/88 H 145/96 H 144/95 H Blood Pressure Mean 104 112 111 Pulse Ox 98 100 100 Oxygen Delivery Method Room Air Room Air Room Air 12/08/24 20:30 Temperature Temperature Source Pulse Rate 68 Respiratory Rate 12 Blood Pressure 136/82 H Blood Pressure Mean 100 Pulse Ox 100 Oxygen Delivery Method Room Air MDM MDM MDM Narrative Medical decision making narrative: Given his neurological symptoms, although he is not losing vision and his NIH stroke scale is 0, stroke team was initiated. I reviewed the radiology report of the CT of the brain and had received a phone call as well, there is no acute hemorrhage. I reviewed the radiology report of the CTA of the head and neck and there is no large vessel occlusion. I discussed patient with the stroke teleneurologist. He is not a TNK candidate given the timing is greater than 4 to 6 hours, and he has no debilitating deficit. Additionally, it was thought that as it is a monocular vision problem out of his right eye only, that he would need more of an ophthalmology consult. EKG was obtained and interpreted by myself independently as normal sinus rhythm with a sinus arrhythmia at 61 bpm without ectopy or acute ST changes. No STEMI. I reviewed his laboratory work and is grossly unremarkable with a normal white count of 6.9 and hemoglobin normal at 16.3, hematocrit 46.8, platelet count 276. Coagulation studies are negative. BMP is grossly normal. High-sensitivity troponin normal at 6. [id number] glucose 84. The differential diagnosis did include TIA versus stroke versus intracranial hemorrhage versus retinal problem versus monocular vision problem versus migraine headache/atypical migraine. SCA is negative for hemorrhage, in discussion with telestroke neurologist, it was thought that given his monocular vision problem that patient should be discussed with ophthalmology. Patient was discussed with Dr. Yanez. It should be noted that prior to discussion with oph thalmology, reexamination of the patient did show that his symptoms resolved but he states he still had pain around his right eye and headache. Hence I think he has more of an atypical migraine. I discussed the patient with the mine environmental engineer who will see the patient tomorrow morning at 8 AM and agrees that things such as papilledema and retinal detachment should not resolve spontaneously. He will be given Compazine and Benadryl for an atypical migraine, and I urged follow-up with ophthalmology tomorrow. He is to call the office first thing at 8 AM and see one of the partners. Return instructions reviewed. Patient motivated for discharge. I do not feel that he requires observation for TIA or stroke. Patient is agreeable to the plan. Disposition is discharged in stable condition. History & Record Review Discussion w/independent historian: Patient and Family Additional record(s) reviewed:: Prior ED visit Lab Data Attestation: I reviewed the patient's lab results. Labs: Laboratory Results - last 24 hr 12/08/24 12/08/24 18:40 18:48 WBC 6.9 RBC 5.38 Hgb 16.3 Hct 46.8 MCV 87.0 MCH 30.3 MCHC 34.8 RDW Std Deviation 39.3 RDW Coeff of Vicente 12.4 Plt Count 276 MPV 9.2 Immature Gran % (Auto) 0.300 Neut % (Auto) 47.6 Lymph % (Auto) 37.5 [place] % (Auto) 11.3 H Eos % (Auto) 2.6 Baso % (Auto) 0.7 Absolute Neuts (auto) 3.3 Absolute Lymphs (auto) 2.59 Nucleated RBC % 0 PT 12.7 INR 0.9 APTT 27.3 Sodium 139 Potassium 4.2 Chloride 104 Carbon Dioxide 24.2 Anion Gap 12 BUN 12 Creatinine 0.86 Estim Creat Clear Calc 198.61 Est GFR (MDRD) Non-Af 117 BUN/Creatinine Ratio 14.3 Glucose 90 Calcium 9.2 Troponin T High Sens 6 POC Glucose 84 Radiography Diagnostic Testing: Clinical Impression(s) from Imaging Studies Brain CT 12/08/24 18:34 IMPRESSION: No acute abnormality. A reading will be called. Reading Location: [facility] Head/Neck CTA 12/08/24 18:42 IMPRESSION: Negative for vascular occlusion Reading Location: [facility] Discharge Plan Triage Chief Complaint: Eye Problem ED Provider: Devin Duke Dx/Rx/DC Orders Clinical Impression: Monocular visual disturbance, Headache Instructions: Understanding Vision Problems, Understanding Headache Pain, ED Double Vision (Diplopia) Primary Care Provider: Care Physician,No Primary Referrals: Santos Yanez MD [Med Staff - Active Staff, Opthamology] - 1 Day Care Physician,No Primary [Primary Care Provider, Medical] Activity Restrictions/Additional Instructions: Follow-up with Dr. Yanez or one of his partners at [facility] tomorrow morning. Call the office at 8 AM for an appointment. Print Language: Welsh Disposition Disposition: Home, Self Care
[2024-12-08 21:11] LABS: Troponin T High Sens 2 HR 6 ng/L (<=22)
== END 2024-12-08 20:53 | disposition home or self-care (01) ==
PROVIDERS: Emergency Provider Emergency Medicine; Visit Provider Emergency Medicine
DX: H53.8 Other visual disturbances (principal); R03.0 Elevated blood-pressure reading, without diagnosis of hypertension; R51.9 Headache, unspecified; I49.8 Other specified cardiac arrhythmias; R29.700 NIHSS score 0; H57.11 Ocular pain, right eye
CPT/HCPCS: 70450; 70496; 70498; 80048; 82962; 84484; 85025; 85610; 85730; 93005; 96374; 99285; Q9967; A4216